=== PATIENT | female | born 1970 | race Caucasian/White ===

== ENCOUNTER → 2021-01-15 13:06 | Outpatient (BNVA) | payer MEDICARE, SELFPAY | PROVIDERS: PCP Physician Assistant Medical; Visit Provider Nurse Practitioner | DX: Z13.89 Encounter for screening for other disorder (principal) | CPT/HCPCS: 99212 ==

== ENCOUNTER → 2021-06-15 13:39 | Outpatient (BNVA) | payer MEDICARE, SELFPAY | PROVIDERS: PCP Physician Assistant Medical; Visit Provider Nurse Practitioner | DX: Z12.11 Encounter for screening for malignant neoplasm of colon (principal); K21.9 Gastro-esophageal reflux disease without esophagitis; E66.01 Morbid (severe) obesity due to excess calories; E73.9 Lactose intolerance, unspecified; R19.7 Diarrhea, unspecified | CPT/HCPCS: Q3014 ==

== ENCOUNTER → 2022-01-21 08:05 | Outpatient (BNVA) | payer MEDICARE, SELFPAY | PROVIDERS: PCP Physician Assistant Medical; Visit Provider Nurse Practitioner | DX: Z12.11 Encounter for screening for malignant neoplasm of colon (principal); K21.9 Gastro-esophageal reflux disease without esophagitis; E73.9 Lactose intolerance, unspecified; R19.7 Diarrhea, unspecified; E66.01 Morbid (severe) obesity due to excess calories; Z68.42 Body mass index [BMI] 45.0-49.9, adult | CPT/HCPCS: 99212 ==

== ENCOUNTER 2022-07-20 09:16 | Day surgery (SDC) | payer MEDICARE, SELFPAY ==
[2022-07-20 09:26] VITALS: BMI 45.8
[2022-07-20 09:34] VITALS: BP 130/83; PULSE 73; RESP 16; TEMP 36.3; O2SAT 95
--- NOTE | 2022-07-20 09:49 | P.CONAN_ITS ---
[facility] Active Problems Active Problems: All Active Problems (Updated 07/15/22 @ 10:06 by Kerry Zacarias RN) GERD (gastroesophageal reflux disease) (Acute) Lactose intolerance (Acute) Diarrhea (Acute) Morbid obesity (Acute) Colon cancer screening (Acute) Past Medical History Medical History (Updated 07/15/22 @ 10:06 by Kerry Zacarias RN) Anemia Chronic back pain Depression GERD (gastroesophageal reflux disease) History of cardiac murmur History of kidney stones IBS (irritable bowel syndrome) Obesity Family History Family History Mother Cancer Maternal Grandfather Cancer Maternal Uncle Lung cancer Family history of problems with anesthesia: No Surgical History Surgical History (Updated 07/15/22 @ 10:06 by Kerry Zacarias RN) History of back surgery History of esophagogastroduodenoscopy (EGD) History of lithotripsy History of Problems with Anesthesia: No Social History Social History Alcohol intake: current Alcohol intake frequency: a few times a month Patient Tobacco Use Status: Former Tobacco user Use of substances other than those prescribed or required for medical reasons: No Are you DNR?: No Advance Directives: No Advance Directives Information Provided: Yes Meds Allergies Allergy/AdvReac Type Severity Reaction Status Date / Time lactose [LACTOSE] Allergy Intermediate GI UPSET Verified 01/21/22 08:11 amoxicillin [AMOXICILLIN] AdvReac Intermediate YEAST Verified 01/21/22 08:11 INFECTION Home Medications Medication Instructions Recorded Confirmed Last Taken Type azelastine 0.05 % eye drops 1 drp ophthalmic (eye) BID PRN as 01/15/21 07/15/22 Unknown History directed biotin 1,000 mcg chewable tablet 1,000 mcg PO DAILY 01/15/21 07/15/22 Unknown History bupropion HCl 150 mg 24 hr tablet, 150 mg PO DAILY 01/15/21 07/15/22 Unknown History extended release bupropion HCl 300 mg 24 hr tablet, 300 mg PO QAM 01/15/21 07/15/22 Unknown History extended release citalopram 20 mg tablet 20 mg PO DAILY 01/15/21 07/15/22 Unknown History diclofenac potassium 50 mg tablet 50 mg PO DAILY 01/15/21 07/15/22 Unknown History diphenhydramine HCl 25 mg capsule 25 mg PO BID 01/15/21 07/15/22 Unknown History (Benadryl) fluticasone propionate 50 2 spray intranasal DAILY 01/15/21 07/15/22 Unknown His tory mcg/actuation nasal spray,suspension montelukast 10 mg tablet 10 mg PO DAILY 01/15/21 07/15/22 Unknown History naproxen 500 mg tablet 500 mg PO BID 01/15/21 07/15/22 Unknown History norethindrone 1 mg-ethinyl 1 tab PO DAILY 01/15/21 07/15/22 Unknown History estradiol 20 mcg (21)-iron 75 mg (7) tablet escitalopram oxalate 10 mg tablet 10 mg PO DAILY 06/15/21 07/15/22 Unknown History multivitamin 1 tab PO DAILY 06/15/21 07/15/22 Unknown History Exam Exam Date and Time: July 20, 2022 0949 Height,Weight and Vital Signs: Height 5 ft 9 in Weight 140.614 kg Last Vital Signs Temp 97.3 F 07/20/22 09:34 Pulse 73 07/20/22 09:34 Resp 16 07/20/22 09:34 BP 130/83 07/20/22 09:34 Pulse Ox 95 07/20/22 09:34 O2 Del Method 07/20/22 09:34 Airway Mallampati Class: II TM Dist: >3cm Neck ROM: Full Denture: Upper and Lower Heart: rrr Lungs: cta Assessment and Plan Assessment Anesthesia Assessment: Anesthesia Plan Discussed and Chart Reviewed Final Anesthetic Review Family History of Problems with Anesthesia: No History of Problems with Anesthesia: No NPO: Yes ASA Class: III Final Preanesthetic Review: No Changes in Pt Med Stat and Consent Obtained/Reviewed Patient Risk: Intermediate Procedure Risk: Intermediate Anesthetic Plan Anesthetic Plan: GA
--- NOTE | 2022-07-20 09:49 | P.HPSUR_ITS ---
Pre-Procedural Eval Section A Date of Service: 07/20/22 Section B Chief Complaint: screening Relevant Family History (Specify if Yes): No Relevant Social History: None Present Medications: see Short Stay Collaborative assessment Medical History: Significant History (History of back surgery History of esophagogastroduodenoscopy (EGD)) History of Previous Operations: Relevant previous surgery/procedure and date(s) (kidney stones, back surgery ) Allergies: Allergies Allergy/AdvReac Type Severity Reaction Status Date / Time lactose [LACTOSE] Allergy Intermediate GI UPSET Verified 01/21/22 08:11 amoxicillin [AMOXICILLIN] AdvReac Intermediate YEAST Verified 01/21/22 08:11 INFECTION Review of Systems Sugical H&P ROS: Negative: Constitution, Cardiovascular, Respiratory, Neurological, Psychiatric, Hem-Onc, Allergic/Immunologic, Gastrointestinal, Debbie tourinary, Musculoskeletal, Integumentary, Endocrine and Eyes/Ears/Nose/Throat Exam Surgical H&P Exam: Normal: HEENT, Normal: Heart, Normal: Lungs, Normal: Extremities, Normal: Abdomen, Normal: Skin and Normal: Neurological Plan Diagnosis/Plan: Unchanged I have reviewed the history and physical and performed a pertinent physical examination on my patient. No changes have occurred unless specified.
[2022-07-20] MEDS: Lactated Ringers 1,000 ML 50 ML IVCONT (09:52)
--- NOTE | 2022-07-20 09:59 | P.OP_ITS ---
Operative Note Operative Note Date of Service: 07/20/22 Narrative: Operative Information Procedure Description: Colonoscopy Indication: screening Anesthesia: MAC COLONOSCOPY Instrument: Olympus variable stiffness ADULT scope 190L Colonoscopy Monitoring: Vital signs and clinical assessment, continuous EKG monitoring, Pulse oximetry, Carbon Dioxide monitoring and blood pressure monitoring were done throughout the procedure. Colon withdrawal time was 12 minutes. Procedure: The patient was placed in the left lateral decubitis position and pre-procedure medications were administered. After a digital rectal examination of the ano-rectum, the video colonoscope was inserted into the rectum and advanced through the colon to the cecum/TI. The colonoscope was slowly withdrawn in a retrograde panoramic fashion and the colon mucosa was carefully examined including a retroflexed view of the rectum. Findings and interventions are described below. Procedure Difficulty: easy Findings: Terminal Ileum-normal Cecum:normal Ascending Colon: 12 mm flat polyp lifted with ORISE and then removed with cold snare Transverse Colon -normal Descending Colon:normal Sigmoid Colon: mild diverticulosis Rectum: Retroflexion with small internal hemorrhoids, grade I, 8-9 mm sessile p olyp removed with cold forceps Anorectum - normal Colon preparation: [place] Bowel Preparation Scale Right colon; 3 Transverse colon: 3 Left colon; 3 (0 = Unprepared colon segment with mucosa not seen due to solid stool that cannot be cleared. 1 = Portion of mucosa of the colon segment seen, but other areas of the colon segment not well seen due to staining, residual stool and/or opaque liquid. 2 = Minor amount of residual staining, small fragments of stool and/or opaque liquid, but mucosa of colon segment seen well. 3 = Entire mucosa of colon segment seen well with no residual staining, small fragments of stool or opaque liquid) Impression and Post Procedure Diagnosis: polyps internal hemorrhoids diverticular disease Plan: High fiber diet leaflet Avoid straining at stool, epsom salts and sitz bath, anusol supps or cream Repeat Colonoscopy in 5 years due to polyps today or earlier if clinically indicated Above findings were reviewed with the patient and relevant handouts were provided if indicated.
[2022-07-20 10:24] VITALS: BP 129/68; PULSE 72; RESP 14; TEMP 36.5; O2SAT 99
[2022-07-20 10:42] VITALS: BP 138/78; PULSE 75; RESP 18; TEMP 36.1; O2SAT 100
== END 2022-07-20 11:24 | disposition home or self-care (01) ==
PROVIDERS: Visit Provider Internal Medicine Gastroenterology
PROC: 0DJD8ZZ Inspection of Lower Intestinal Tract, Via Natural or Artificial Opening Endoscopic (ICD-10-PCS; CPT 45378; principal; 2022-07-20 10:10)
DX: Z12.11 Encounter for screening for malignant neoplasm of colon (principal); R19.7 Diarrhea, unspecified; D12.2 Benign neoplasm of ascending colon; D12.8 Benign neoplasm of rectum; K57.30 Diverticulosis of large intestine without perforation or abscess without bleeding; K64.0 First degree hemorrhoids; K21.9 Gastro-esophageal reflux disease without esophagitis; E73.9 Lactose intolerance, unspecified; E66.01 Morbid (severe) obesity due to excess calories; Z68.42 Body mass index [BMI] 45.0-49.9, adult; Z79.51 Long term (current) use of inhaled steroids; Z79.899 Other long term (current) drug therapy; Z88.1 Allergy status to other antibiotic agents; Z87.891 Personal history of nicotine dependence
CPT/HCPCS: 45385; 45380; 45381; 88305

== ENCOUNTER → 2023-02-09 08:06 | Outpatient (BNVA) | payer MEDICARE, SELFPAY | PROVIDERS: Visit Provider Nurse Practitioner | DX: D12.6 Benign neoplasm of colon, unspecified (principal); R19.7 Diarrhea, unspecified; E73.9 Lactose intolerance, unspecified | CPT/HCPCS: 99212 ==

== ENCOUNTER 2025-09-23 09:44 | Outpatient (AMB) | payer MEDICARE, MEDICAID, SELFPAY ==
--- NOTE | 2025-09-23 09:47 | MHC.OFFVIS ---
Vital Signs 09/23/25 09:50 Height 5 ft 9 in Weight 298 lb 13.259 oz BMI 44.1 BP 120/76 Blood Pressure Location Rt brachial Position Sitting Pulse 74 Pulse Source Pulse Oximeter Pulse Oximetry (%) 97 Oxygen Delivery Method Room Air Intake Visit Reasons: Thyroid nodule Intake Note: NEW Patient presents today to establish care for Thyroid Nodule: Continuous Improvement Black Belt Required: No Accompanied by: Self / Same As Patient Allergies lactose (LACTOSE) Allergy (Intermediate, Verified 09/23/25 09:51) GI UPSET amoxicillin (AMOXICILLIN) Adverse Reaction (Intermediate, Verified 09/23/25 09:51) YEAST INFECTION HPI Comments Details: History of Present Illness Thyroid Nodules: Approximately three weeks ago, the patient noticed a lump on their neck, confirmed by a coworker. After sending a picture to their doctor, they were prescribed antibiotics and scheduled for an ultrasound conducted one and a half to two weeks ago. The ultrasound revealed thyroid nodules, and the report suggested a biopsy. The patient reports that the lump is less noticeable when the head is positioned a certain way. Symptoms include fluctuating body temperature, occasional double vision, persistent tiredness despite adequate sleep, and minor difficulty swallowing with occasional tenderness since the lump appeared. The patient has a fear of choking and has modified their diet to softer foods. Obesity: The patient has maintained a stable weight despite dietary changes and exercise. Reports increased anxiety and tiredness. Has reduced sugar and junk food intake and increased water consumption. The patient has been actively modifying their diet over the past year, focusing on reducing sugar, soda, and junk food. They have increased their water intake and attempt to avoid sweets by not bringing them into the home. The patient begins their day with a Premier Protein shake and snacks on healthier options like granola and Ritz peanut butter crackers. They have expressed frustration with a soft food diet, preferring variety. For exercise, the patient walks at least 5,000 steps daily but has not resumed gym activities since the COVID-19 pandemic. They expressed interest in more structured exercises and are considering future medication options for weight management post-thyroid evaluation. Medications - Biotin - Previous use of Dicyclomine for stomach issues - Abilify (discontinued) Social History - Works as a skin care consultant - Engages in walking at least 5,000 steps daily Family History - Grandfather had colon cancer - No known family history of thyroid cancer or issues Review of Systems - Weight: Stable, no significant gain or loss - Eyes: Occasional double vision for the past few months - Gastrointestinal: Diarrhea with milk products due to lactose intolerance - Neurological: Persistent tiredness despite adequate sleep - Endocrine: No significant changes in weight despite dietary changes and exercise - Musculoskeletal: Chronic back pain - Psychological: Increased anxiety and tiredness - Respiratory: No snoring reported until a week ago Physical exam: General: Well appearing. Morbily obese Neck/Thyroid: Thyroid irregular, multiple nodules palpated, more prominent one in the isthmus, soft, feels fluid-filled Eyes: No conjunctival injection, not lid lag or proptosis CV: RRR, no murmur. No edema. Resp:Lungs clear to auscultation bilaterally Abdomen: Soft, nontender. nondistended Extremities/Neuro: No weakness or tremor of outstretched hands Labs Imaging: Thyroid US 09/12/25 FINDINGS: RIGHT THYROID LOBE: 5.9 x 1.8 x 2.8 cm, volume 15.8 cc. Normal homogeneous echotexture. Normal parenchymal vascularity. Nodule #1: Upper pole, 1.1 x 0.5 x 0.8 cm, predominantly solid, hypoechoic, not [id number], smooth margin, no echogenic foci. TI-RADS Category 4. Nodule #2: Mid-gland, 2.2 x 1.7 x 1.9 cm, predominantly solid, hypoechoic, not [id number], smooth margin, no echogenic foci. TI-RADS Category 4. Nodule #3: Lower pole, 1.7 x 1.0 x 1.3 cm, predominantly solid, mildly hypoechoic, not [id number], ill-defined margin, no echogenic foci. TI-RADS Category 4. Scattered additional subcentimeter nodules which do not meet TI-RADS criteria for imaging follow-up. LEFT THYROID LOBE: 5.9 x 2.1 x 2.8 cm, volume 17.9 cc. Normal homogeneous echotexture. Normal parenchymal vascularity. Nodule #1: Upper pole, 2.2 x 1.4 x 1.6 cm, predominantly solid, hypoechoic, not muyyeq-[id number], smooth margin, no echogenic foci. TI-RADS Category 4. Nodule #2: Lower pole, 1.7 x 1.3 x 1.5 cm, mixed cystic and solid, hypoechoic, not ipxqce-ypbr-ympi, smooth margin, no echogenic foci. TI-RADS Category 3. ISTHMUS: Thickness: 1.0 cm. Nodule #1: Mid isthmus, 2.6 x 2.2 x 2.2 cm, predominantly cystic, anechoic, not [id number]-tmqk-[id number], smooth margin, no echogenic foci. TI-RADS Category 1. IMPRESSION: Enlarged multinodular thyroid gland as detailed above. Tissue sampling is recommended for the TR 4 nodules measuring up to 2.2 cm in the right interpolar region, 1.7 cm in the right lower pole, and 2.2 cm in the left upper pole. Follow-up ultrasound is recommended in one year for the 1.1 cm right upper pole tear for nodule and the 1.7 cm right lower pole TR 3 nodule. [facility] Medical History History of kidney stones Anemia Chronic back pain Depression History of cardiac murmur IBS (irritable bowel syndrome) GERD (gastroesophageal reflux disease) Obesity Surgical History H/O colonoscopy History of lithotripsy History of back surgery History of esophagogastroduodenoscopy (EGD) Family History Mother Cancer Maternal Grandfather Cancer Maternal Uncle Lung cancer Social History Alcohol intake: current Alcohol intake frequency: a few times a month Patient Tobacco Use Status: Former Tobacco user Physical Exam Vital Signs: Last Vital Signs Pulse 74 09/23/25 09:50 BP 120/76 09/23/25 09:50 Pulse Ox 97 09/23/25 09:50 Oxygen Delivery Method Room Air 09/23/25 09:50 BMI result Body Mass Index 44.1 Assessment & Plan Assessment & Plan (1) Thyroid nodule: Code(s): E04.1 - Nontoxic single thyroid nodule Category: Medical Plan: The patient has thyroid nodules found incidentally that require further evaluation. Disucssed with the patient that the main concerns with thyroid nodules is hyperthyroidism and concerns about potential thyroid cancer. TFTs are necessary to rule out thyroid hormone overproduction before proceeding with a biopsy. We discussed that thyroid nodules are highly prevalent, affecting up to 60?65% of the general population, with most being benign. The risk of malignancy in thyroid nodules is relatively low, estimated at 4?6.5%. Most nodules are discovered incidentally due to the widespread use of imaging. Malignant potential is assessed using clinical risk factors, ultrasound features (such as microcalcifications, irregular margins, hypoechogenicity, and lcqdqp-dcjt-hccj shape), and, in indeterminate cases, molecular testing. The majority of thyroid cancers detected are small, indolent papillary carcinomas with excellent prognosis. Thyroid Nodules: - Discontinue biotin supplementation for five days prior to thyroid function blood test. - Conduct thyroid function tests to evaluate hormone levels. - Consider fine needle aspiration (FNA) biopsy based on blood test results. - Follow up in two weeks to discuss test results and next steps. (2) Morbid obesity: Code(s): E66.01 - Morbid (severe) obesity due to excess calories Category: Medical Plan: The patient has gained weight in the last 5-6 years, which has remained stable weight despite making lifestyle changes. Consideration for appetite-suppressing medication will be pending the results of the thyroid evaluation. She denies history of trauma or head surgery. - Referral for a sleep study due to potential sleep disturbances. - Consider future use of medication to assist with weight management based on thyroid results. - Referral to naval marine engineer for help with weight loss/nutrition education - Adviced to increase physical activity to 170 mins per week, including strenghtening exercises Plan 60 minutes spent reviewing previous records, labs, imaging, education and documenting in the chart Orders: Orders TSH reflex Free T4 Today E04.1 - Nontoxic single thyroid nodule US biopsy thyroid Today E04.1 - Nontoxic single thyroid nodule Referrals Nutrition/Dietitian Referral E66.01 - Morbid (severe) obesity due to excess calories Sleep Medicine Referral E66.01 - Morbid (severe) obesity due to excess calories Coding Level of Care Code New Pt Level 5 (64040) Diagnoses Thyroid nodule E04.1 Morbid obesity E66.01
[2025-09-23 09:50] VITALS: BP 120/76; PULSE 74; O2SAT 97; BMI 44.1
== END 2025-09-23 10:58 | disposition home or self-care (01) ==
PROVIDERS: PCP Physician Assistant Medical; Visit Provider Student in an Organized Health Care Education/Training Program
DX: E04.1 Nontoxic single thyroid nodule (principal); E66.01 Morbid (severe) obesity due to excess calories; Z68.41 Body mass index [BMI] 40.0-44.9, adult
CPT/HCPCS: 99205

== ENCOUNTER → 2025-09-23 09:44 | Outpatient (BNVA) | payer MEDICARE, SELFPAY | PROVIDERS: PCP Physician Assistant Medical; Visit Provider Student in an Organized Health Care Education/Training Program | DX: E04.1 Nontoxic single thyroid nodule (principal); E66.01 Morbid (severe) obesity due to excess calories | CPT/HCPCS: 99202 ==

== ENCOUNTER 2025-09-29 08:24 | Outpatient (REF) | payer MEDICARE, MEDICAID, SELFPAY ==
--- OUTSIDE RECORDS SUMMARY | 2025-09-29 08:31 | XMS_ITS | Encounter Summary ---
Author Organization [facility] Address [address] [place] [address] Phone Care Team Providers Care Welder Gun Name Role Phone Goran Hernandez MD Primary Care Provider [phone] Encounter Details Date Type Department Care Team (Late st Contact Info) Description 12/14/2023 Documentation Only [facility] [address] [place] [address] Carlos [place] [address] [place] [phone] Social History Tobacco Use Types Packs/Day Years Used Date Smoking Tobacco: Never Assessed Comments Unknown Sex and Gender Information Value Date Recorded Sex Assigned at Not on file Legal Sex Female 10:50 AM EST Gender Identity Not on file Sexual Orientation Not on file documented as of this encounter Plan of Treatment Upcoming Encounters Date Type Department Care Team (Late st Contact Info) Description 08/05/2026 1:30 PM EDT Office Visit [facility] [address] [place] [address] Kevin Kline MD [address] [place] [address] documented as of this encounter Visit Diagnoses Not on filedocumented in this encounter Care Teams Welder Gun Relationship Specialty Start Date End Date Goran Hernandez MD [address] [place] [phone] PCP - General Internal Medicine 03/21/24 documented as of this encounter
--- OUTSIDE RECORDS SUMMARY | 2025-09-29 08:31 | XMS_ITS | Clinical Summary ---
Author Organization [facility] Address [address] [place] [address] Care Team Providers Care Director Of Critical Care Name Role Phone Unavailable Primary Care Provider Unavailabl e Social History Tobacco Use Types Packs/Day Years Used Date Smoking Tobacco: Never Assessed Comments Unknown Sex and Gender Information Value Date Recorded Sex Assigned at Not on file Legal Sex Female 7:03 PM EST Gender Identity Not on file Sexual Orientation Not on file Plan of Treatment Health Maintenance Due Date Last Done Comments Hepatitis C Virus Screening 1970 HIV Screening 1983 DTaP/Tdap/Td Vaccines (1 - Tdap) 1989 Hepatitis B Vaccines (1 of 3 - 19+ 3-dose series) 02/1989 Pneumococcal Vaccines 50+ (1 of 1 - PCV) 02/08/2020 Zoster (Shingles) Vaccine (1 of 2) 02/08/2020 COVID-19 Vaccine (1 - season) 2025 RSV Vaccine 50 years and old er and Patients (1 - 1-dose 75+ series) 2045
--- OUTSIDE RECORDS SUMMARY | 2025-09-29 08:31 | XMS_ITS | Clinical Summary ---
Author Organization [facility] Address [address] [place] [address] Phone Care Team Providers Care Swamper Name Role Phone Goran Hernandez MD Primary Care Provider [phone] Medications buPROPion XL (WELLBUTRIN XL) 300 MG 24 hr tablet Take 300 mg by mouth 1 (one) time each day 02/16/2024 Active citalopram (CeleXA) 20 MG tablet Take 20 mg by mouth 1 (one) time each day in the evening 02/19/2024 Active famotidine (PEPCID) 20 MG tablet Take 20 mg by mouth at night if needed 02/10/2024 Active montelukast (SINGULAIR) 10 MG tablet Take 10 mg by mouth 1 (one) time each day 02/16/2024 Active pantoprazole (PROTONIX) 40 MG EC tablet Take 40 mg by mouth in the morning and 40 mg in the evening. 02/16/2024 Active Active Problems Problem Noted Date Diagnosed Date Chronic kidney disease 04/19/2024 Nephrolithiasis 04/19/2024 Encounters Date Type Department Care Team Description 07/30/2025 3:45 PM EDT Office Visit [facility], [address] [place] [address] Kevin Kline MD Chronic kidney disease, stage 2 (mild) (Primary Dx); Morbid obesity (HCC) from Last 3 Months Family History Medical History Relation Comments Cancer Father Cancer Mother Relation Status Comments Father Mother Social History Tobacco Use Types Packs/Day Years Used Date Smoking Tobacco: Never Assessed Comments Unknown Sex and Gender Information Value Date Recorded Sex Assigned at Not on file Legal Sex Female 10:50 AM EST Gender Identity Not on file Sexual Orientation Not on file Last Filed Vital Signs Vital Sign Reading Time Taken Comments Blood Pressure 119/84 10/09/2024 3:11 PM EST Pulse - - Temperature - - Respiratory Rate - - Oxygen Saturation - - Inhaled Oxygen Concentration - - Weight 136 kg (299 lb 12.8 oz) 07/30/2025 5:57 P M EDT Height - - Body Mass Index - - Plan of Treatment Upcoming Encounters Date Type Department Care Team (Late st Contact Info) Description 08/05/2026 1:30 PM EDT Office Visit [facility] [place], [address] [place] [address] Kevin Kline MD [address] [place] [phone] Health Maintenance Due Date Last Done Comments Breast Cancer Screening 1970 Hepatitis B Vaccine (1 of 3 - 19+ 3-dose series) 02/07 Pneumococcal Vaccine: 50+ Years (1 of 2 - PCV) 989 Colorectal Cancer Screening: Annual FOBT 2019 Colorectal Cancer Screening: Colonoscopy 2019 Colorectal Cancer Screening: Sigmoidoscopy 2019 Influenza Vaccine (#1) 2025 Procedures Procedure Name Priority Date/Time Associated Diagnosis Comments URINE ALBUMIN / CREATININE RATIO Routine 07/08/2025 8:37 AM EDT Stage 3 chronic kidney disease, not otherwise specified (HCC) Hydronephrosis with ureteropelvic junction obstruction Albuminuria, not otherwise specified RENAL FUNCTION PANEL Routine 07/08/2025 8:37 AM EDT Stage 3 chronic kidney disease, not otherwise specified (HCC) Hydronephrosis with ureteropelvic junction obstruction Albuminuria, not otherwise specified CBC AND DIFFERENTIAL Routine 07/08/2025 8:37 AM EDT Stage 3 chronic kidney disease, not otherwise specified (HCC) Hydronephrosis with ureteropelvic junction obstruction Albuminuria, not otherwise specified from Last 3 Months Results * Urine Albumin / Creatinine Ratio (07/08/2025 8:37 AM EDT) Creatinine, Ur 96.7 Not Estab. mg/dL [facility] Albumin, Urine 17.9 Not Estab. ug/mL [facility] Albumin/Creatin ine Ratio 19 0 - 29 mg/g creat [facility] Comment: Normal: 0 - 29 Moderately increased: 30 - 300 Severely increased: >300 Urine Urine specimen obtained by clean catch procedure / Unknown 07/08/2025 8:37 AM EDT 07/08/2025 Nacho Forrester MD LAB URINE ORDERABLES Final Result [facility] [address] [place] [address] * CBC and Differential (07/08/2025 8:37 AM EDT) WBC 7.4 3.4 - 10.8 x10E3/uL [facility] RBC 4.18 3.77 - 5.28 x10E6/uL [facility] Hemoglobin 13.3 11.1 - 15.9 g/dL [facility] Hematocrit 40.1 34.0 - 46.6 % [facility] MCV 96 79 - 97 fL [facility] MCH 31.8 26.6 - 33.0 pg [facility] MCHC 33.2 31.5 - 35.7 g/dL [facility] RDW 12.6 11.7 - 15.4 % [facility] Platelets 235 150 - 450 x10E3/uL [facility] Neutrophils Relative 54 Not Estab. % [facility] Lymphocytes Relative 38 Not Estab. % [facility] Monocytes 6 Not Estab. % [facility] Eosinophils Relative 2 Not Estab. % [facility] Basophils Relative 0 Not Estab. % [facility] Neutrophils Absolute 4.0 1.4 - 7.0 x10E3/uL [facility] Lymphocytes Absolute 2.8 0.7 - 3.1 x10E3/uL [facility] Monocytes Absolute 0.5 0.1 - 0.9 x10E3/uL [facility] Eosinophils Absolute 0.2 0.0 - 0.4 x10E3/uL [facility] Basophils Absolute 0.0 0.0 - 0.2 x10E3/uL [facility] Immature Granulocytes 0 Not Estab. % [facility] Immature Grans (Absolute) 0.0 0.0 - 0.1 x10E3/uL [facility] Blood Venous blood / Unknown 07/08/2025 8:37 AM EDT 07/08/2025 us Nacho Forrester MD LAB BLOOD ORDERABLES Final Result [facility] [address] [place] [address] * (ABNORMAL) Renal Function Panel (07/08/2025 8:37 AM EDT) Glucose 129(H) 70 - 99 mg/dL [facility] BUN 19 6 - 24 mg/dL [facility] Creatinine 1.10(H) 0.57 - 1.00 mg/dL [facility] eGFR CKD-EPI CR 2020 59(L) >59 mL/min/1.7 3 [facility] BUN/Creatinine Ratio 17 9 - 23 [facility] Sodium 139 134 - 144 mmol/L [facility] Potassium 4.4 3.5 - 5.2 mmol/L [facility] Chloride 104 96 - 106 mmol/L [facility] Bicarbonate (CO2) 18(L) 20 - 29 mmol/L [facility] Calcium 9.5 8.7 - 10.2 mg/dL [facility] Phosphorus 3.7 3.0 - 4.3 mg/dL [facility] Albumin 4.1 3.8 - 4.9 g/dL [facility] Blood Venous blood / Unknown 07/08/2025 8:37 AM EDT 07/08/2025 Nacho Forrester MD LAB BLOOD ORDERABLES Final [facility] [address] [place] [address] from Last 3 Months Insurance [employer] Member Subscriber Plan / Payer (Ef fective 2023-Present) Name:Jenny Cruz Relation to Subscriber:Self Name:Jenny Cruz Payer ID:[id number] (NAIC) Group ID:[id number] Type:Medicare Address: [facility] [address] [id number] Medicaid [place] Care Teams Swamper Relationship Specialty Start Date End Date Goran Hernandez MD [address] [place] [address] PCP - General Internal Medicine 03/21/24
--- OUTSIDE RECORDS SUMMARY | 2025-09-29 08:31 | XMS_ITS | Encounter Summary ---
Author Organization [facility] Address [address] [place] [address] Phone Care Team Providers Care Instructor Psychiatric Aide Name Role Phone Goran Hernandez MD Primary Care Provider Encounter Details Date Type Department Care Team (Late st Contact Info) Description 12/14/2023 Documentation Only [facility] [address] [place] [address] Carlos [place] [address] [place] [phone] Social History Tobacco Use Types Packs/Day Years [...] Visit [facility] [address] [place] [address] Kevin Kline MD [address] [place] [address] documented as of this encounter Visit Diagnoses Not on filedocumented in this encounter Care Teams Instructor Psychiatric Aide Relationship Specialty Start Date End Date Goran Hernandez MD [address] [place] [phone] PCP - General Internal Medicine 03/21/24 documented as of this encounter
--- OUTSIDE RECORDS SUMMARY | 2025-09-29 08:31 | XMS_ITS | Encounter Summary ---
Author Organization [facility] Address [address] [place] [address] Care Team Providers Care Research Physiologist Name Role Phone Unavailable Primary Care Provider Unavailabl e Encounter Details Date Type Department Care Team (Late st Contact Info) Description 08/17/2023 Scanned Document [address] [phone] Tobi Urban MD [address] [place] [phone] Social History Tobacco Use Types Packs/Day Years Used Date Smoking Tobacco: Never Assessed Comments Unknown Sex and Gender Information Value Date Recorded Sex Assigned at Not on file Legal Sex Female 7:03 PM EST Gender Identity Not on file Sexual Orientation Not on file documented as of this encounter Plan of Treatment Not on file documented as of this encounter Visit Diagnoses Not on filedocumented in this encounter
== END 2025-09-29 08:25 | disposition home or self-care (01) ==
LOC: HO.LAB 08:24
PROVIDERS: Student in an Organized Health Care Education/Training Program; PCP Internal Medicine; Visit Provider Psychiatry & Neurology Clinical Neurophysiology
DX: E04.1 Nontoxic single thyroid nodule (principal)
CPT/HCPCS: 36415; 84443

== ENCOUNTER 2025-10-08 07:45 | Outpatient (REF) | payer MEDICARE, MEDICAID, SELFPAY ==
--- OUTSIDE RECORDS SUMMARY | 2025-10-08 07:49 | XMS_ITS | Encounter Summary ---
Author Organization [facility] Address [address] [place] [address] Care Team Providers Care Service Station Helper Name Role Phone Unavailable Primary Care Provider Unavailabl e Encounter Details Date Type Department Care Team (Late st Contact Info) Description 08/17/2023 Scanned Document [address] [phone] Tobi Urban MD [address] [place] [address] [phone] Social History Tobacco Use Types Packs/Day Years [...]
--- OUTSIDE RECORDS SUMMARY | 2025-10-08 07:49 | XMS_ITS | Clinical Summary ---
Author Organization [facility] Address [address] [place] [address] Phone Care Team Providers Care Tour Counselor Name Role Phone Goran Hernandez MD Primary Care Provider [phone] Medications buPROPion XL (WELLBUTRIN XL) 300 MG [...] Office Visit [facility], [address] [place] [address] Kevin Kline MD Chronic kidney [...] Visit [facility] [place], [address] [place] [address] Kevin Kline MD [address] [phone] Health Maintenance Due Date Last Done Comments Breast Cancer Screening 1970 Hepatitis B Vaccine (1 of 3 - 19+ 3-dose series) 02/07 Pneumococcal Vaccine: 50+ Years (1 of 2 - PCV) 989 Colorectal Cancer Screening: Annual FOBT 2019 Colorectal Cancer Screening: Colonoscopy 2019 Colorectal Cancer Screening: Sigmoidoscopy 2019 Influenza Vaccine (#1) 2025 Insurance [employer] Medicaid [place] Care Teams Tour Counselor Relationship Specialty Start Date End Date Goran Hernandez MD [address] [phone] PCP - General Internal Medicine 03/21/24
--- OUTSIDE RECORDS SUMMARY | 2025-10-08 07:49 | XMS_ITS | Encounter Summary ---
Author Organization [facility] Address [address] [place] [address] Phone Care Team Providers Care Equipment Worker Name Role Phone Goran Hernandez MD Primary Care Provider [phone] Encounter Details Date Type Department Care Team (Late st Contact Info) Description 12/14/2023 Documentation Only [facility] [address] [place] [address] Carlos Sandy [place] [address] [place] [phone] Social History Tobacco Use Types Packs/Day Years [...] Visit [facility] [address] [place] [address] Kevin Kline MD [address] [place] [address] documented as of this encounter Visit Diagnoses Not on filedocumented in this encounter Care Teams Equipment Worker Relationship Specialty Start Date End Date Goran Hernandez MD [address] [place] [phone] PCP - General Internal Medicine 03/21/24 documented as of this encounter
--- OUTSIDE RECORDS SUMMARY | 2025-10-08 07:49 | XMS_ITS | Encounter Summary ---
Author Organization [facility] Address [address] [place] [address] Phone Care Team Providers Care Cook Fry Name Role Phone Goran Hernandez MD Primary Care Provider [phone] Encounter Details Date Type Department Care Team (Late st Contact Info) Description 12/14/2023 Documentation Only [facility] [address] [place] [address] Carlos [place] [address] [place] [phone] Social History Tobacco Use Types Packs/Day Years [...] Visit [facility] [address] [place] [address] Kevin Kline MD [address] [place] [address] documented as of this encounter Visit Diagnoses Not on filedocumented in this encounter Care Teams Cook Fry Relationship Specialty Start Date End Date Goran Hernandez MD [address] [place] [phone] PCP - General Internal Medicine 03/21/24 documented as of this encounter
--- OUTSIDE RECORDS SUMMARY | 2025-10-08 07:49 | XMS_ITS | Clinical Summary ---
Author Organization [facility] Address [address] [place] [address] Care Team Providers Care Building Pressure Washer Name Role Phone Unavailable Primary Care Provider [...]
--- NOTE | 2025-10-08 09:29 | PM.PROC ---
Brief Operative Note Date of procedure: 10/08/25 Pre-op diagnosis: Right mid pole 2.2 x 1.7 x 1.9 cm and left upper pole, 2.2 x 1.4 x 1.6 cm Post-op diagnosis: same Procedure: INDICATION: Right mid pole 2.2 x 1.7 x 1.9 cm and left upper pole, 2.2 x 1.4 x 1.6 cm thyroid nodules; FNA performed to assess for malignancy DESCRIPTION OF PROCEDURE: The indications for FNA (to assess for malignancy) were reviewed with the patient in detail. Potential complications (e.g., bleeding, infection, damage to local structures, absence of clear diagnosis after FNA) were reviewed. Alternatives to FNA including conservative observation or surgery were described. The patient understood and agreed to proceed. This was documented by the signing of the written informed consent form. A time-out was performed to confirm the patient's identity and the site of planned FNA. The nodule of interest was identified using ultrasound (14 MHz linear array probe). The site of FNA was then draped in the usual fashion and carefully cleaned and prepared using alcohol swabs. The skin at the previously-identified site of needle insertion was iced and sprayed with numbing spray. Under ultrasound guidance, 4 passes were performed using a 1.5-inch, 22-gauge needle, and sample was obtained via capillary action for each thyroid nodule. The needle tip was clearly visualized to be within the nodule at the time of sampling for 4 of 4 passes in each nodule. The patient tolerated the procedure well. There were no immediate complications. A small adhesive bandage was applied, and the patient was advised to take acetaminophen (rather than NSAIDs) for any discomfort and to report any signs of inflammation/infection or marked swelling. IMPRESSION: Technically successful ultrasound-guided fine needle aspiration of 2.2 x 1.7 x 1.9 cm and left upper pole, 2.2 x 1.4 x 1.6 cm thyroid nodules. PLAN: The patient was advised that I will provide follow-up regarding the cytology result and any subsequent plans. Sandra Hodge MD Endocrinology Attending Anesthesia: local Surgeon: Sandra Hodge Disposition: same day
== END 2025-10-08 07:46 | disposition home or self-care (01) ==
LOC: HO.US 07:45
PROVIDERS: PCP Internal Medicine; Visit Provider Student in an Organized Health Care Education/Training Program
DX: E04.1 Nontoxic single thyroid nodule (principal)
CPT/HCPCS: 10005; 88173

== ENCOUNTER → 2025-10-08 07:45 | Outpatient (BNV) | payer MEDICARE, MEDICAID, SELFPAY | PROVIDERS: PCP Internal Medicine; Visit Provider Student in an Organized Health Care Education/Training Program | DX: E04.2 Nontoxic multinodular goiter (principal) | CPT/HCPCS: 10005; 10006 ==

== ENCOUNTER 2025-10-22 12:42 | Outpatient (AMB) | payer MEDICARE, MEDICAID, SELFPAY ==
--- NOTE | 2025-10-22 12:49 | A.OFFVIS_ITS ---
Vital Signs 3 10/22/25 12:50 Height 5 ft 9 in Weight 298 lb 13.259 oz BMI 44.1 BP 118/68 Blood Pressure Location Rt brachial Position Sitting Pulse 86 Pulse Source Pulse Oximeter Pulse Oximetry (%) 98 Oxygen Delivery Method Room Air Intake Visit Reasons: Biopsy f/u Intake Note: Patient presents here today for FNA Thyroid Biopsy results: * FNA Thyroid Biopsy: Completed on 10/08/2025 Network Security Architect Required: No Accompanied by: Self / Same As Patient Allergies lactose (LACTOSE) Allergy (Intermediate, Verified 09/23/25 09:51) GI UPSET amoxicillin (AMOXICILLIN) Adverse Reaction (Intermediate, Verified 09/23/25 09:51) YEAST INFECTION HPI Comments Details: History of Present Illness Thyroid Nodules: Approximately three weeks ago, the patient noticed a lump on their neck, confirmed by a coworker. After sending a picture to their doctor, they were prescribed antibiotics and scheduled for an ultrasound conducted one and a half to two weeks ago. The ultrasound revealed thyroid nodules, and the report suggested a biopsy. The patient reports that the lump is less noticeable when the head is positioned a certain way. Symptoms include fluctuating body temperature, occasional double vision, persistent tiredness despite adequate sleep, and minor difficulty swallowing with occasional tenderness since the lump appeared. The patient has a fear of choking and has modified their diet to softer foods. Obesity: The patient has maintained a stable weight despite dietary changes and exercise. Reports increased anxiety and tiredness. Has reduced sugar and junk food intake and increased water consumption. The patient has been actively modifying their diet over the past year, focusing on reducing sugar, soda, and junk food. They have increased their water intake and attempt to avoid sweets by not bringing them into the home. The patient begins their day with a Premier Protein shake and snacks on healthier options like granola and Ritz peanut butter crackers. They have expressed frustration with a soft food diet, preferring variety. For exercise, the patient walks at least 5,000 steps daily but has not resumed gym activities since the COVID-19 pandemic. They expressed interest in more structured exercises and are considering future medication options for weight management post-thyroid evaluation. 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 - Engages in walking at least 5,000 steps daily Family History - Grandfather had colon cancer - No known family history of thyroid cancer or issues Review of Systems - Weight: Stable, no significant gain or loss - Eyes: Occasional double vision for the past few months - Gastrointestinal: Diarrhea with milk products due to lactose intolerance - Neurological: Persistent tiredness despite adequate sleep - Endocrine: No significant changes in weight despite dietary changes and exercise - Musculoskeletal: Chronic back pain - Psychological: Increased anxiety and tiredness - Respiratory: No snoring reported until a week ago Interval history: Patient underwent FNA on 10/08/25 She did not have any complications from the FNA Physical exam: General: Well appearing. Morbily obese Neck/Thyroid: Thyroid irregular, multiple nodules palpated, more prominent one in the isthmus, soft, feels fluid-filled Eyes: No conjunctival injection, not lid lag or proptosis CV: RRR, no murmur. No edema. Resp:Lungs clear to auscultation bilaterally Abdomen: Soft, nontender. nondistended Extremities/Neuro: No weakness or tremor of outstretched hands Labs Imaging: FNA 10/08/25 Thyroid US 09/12/25 FINDINGS: RIGHT THYROID LOBE: 5.9 x 1.8 x 2.8 cm, volume 15.8 cc. Normal homogeneous echotexture. Normal parenchymal vascularity. Nodule #1: Upper pole, 1.1 x 0.5 x 0.8 cm, predominantly solid, hypoechoic, not [id number], smooth margin, no echogenic foci. TI-RADS Category 4. Nodule #2: Mid-gland, 2.2 x 1.7 x 1.9 cm, predominantly solid, hypoechoic, not yztxmo-[id number], smooth margin, no echogenic foci. TI-RADS Category 4. Nodule #3: Lower pole, 1.7 x 1.0 x 1.3 cm, predominantly solid, mildly hypoechoic, not alhnur-kgiy-[id number], ill-defined margin, no echogenic foci. TI-RADS Category 4. Scattered additional subcentimeter nodules which do not meet TI-RADS criteria for imaging follow-up. LEFT THYROID LOBE: 5.9 x 2.1 x 2.8 cm, volume 17.9 cc. Normal homogeneous echotexture. Normal parenchymal vascularity. Nodule #1: Upper pole, 2.2 x 1.4 x 1.6 cm, predominantly solid, hypoechoic, not uwomnq-kwna-nxyh, smooth margin, no echogenic foci. TI-RADS Category 4. Nodule #2: Lower pole, 1.7 x 1.3 x 1.5 cm, mixed cystic and solid, hypoechoic, not vjcolt-ivje-fcjm, smooth margin, no echogenic foci. TI-RADS Category 3. ISTHMUS: Thickness: 1.0 cm. Nodule #1: Mid isthmus, 2.6 x 2.2 x 2.2 cm, predominantly cystic, anechoic, not bqvknz-eghx-fyws, smooth margin, no echogenic foci. TI-RADS Category 1. IMPRESSION: Enlarged multinodular thyroid gland as detailed above. Tissue sampling is recommended for the TR 4 nodules measuring up to 2.2 cm in the right interpolar region, 1.7 cm in the right lower pole, and 2.2 cm in the left upper pole. Follow-up ultrasound is recommended in one year for the 1.1 cm right upper pole tear for nodule and the 1.7 cm right lower pole TR 3 nodule. [facility] Medical History (Updated 09/23/25 @ 10:22 by Sandra Hodge MD) History of kidney stones Anemia Chronic back pain Depression History of cardiac murmur IBS (irritable bowel syndrome) GERD (gastroesophageal reflux disease) Obesity Surgical History (Updated 10/22/25 @ 12:56 by KAYLA Bauman) History of fine needle aspiration with imaging guidance H/O colonoscopy History of lithotripsy History of back surgery History of esophagogastroduodenoscopy (EGD) Family History Mother Cancer Maternal Grandfather Cancer Maternal Uncle Lung cancer Social History Alcohol intake: current Alcohol intake frequency: a few times a month Patient Tobacco Use Status: Former Tobacco user Physical Exam Vital Signs: Oxygen Delivery Method Room Air 10/22/25 12:50 BMI result Body Mass Index 44.1 Assessment & Plan Assessment & Plan (1) Thyroid nodule: Code(s): E04.1 - Nontoxic single thyroid nodule Category: Medical Plan: The patient has thyroid nodules found incidentally that require further evaluation. Disucssed with the patient that the main concerns with thyroid nodules is hyperthyroidism and concerns about potential thyroid cancer. TFTs are necessary to rule out thyroid hormone overproduction before proceeding with a biopsy. Results of the FNA showed that her right midpole thyroid nodule was [place] category 2, we discussed that this indicates that is a benign nodule, but we advise to monitor yearly to assess for changes in size or volume. In regards to her left upper pole nodule, was resulted nondiagnostic, which is expected as it was a mostly cystic nodule. I do think that overall the risk of malignancy with this nodule is lower, but I would advise to continue to monitor yearly with ultrasound also. Plan Repeat ultrasound of thyroid nodules biopsied in 1 year She has pending FNA of other 2 thyroid nodules that would be performed on 11/05/2025 (2) Morbid obesity: Code(s): E66.01 - Morbid (severe) obesity due to excess calories Category: Medical Plan: The patient has gained weight in the last 5-6 years, which has remained stable weight despite making lifestyle changes. Consideration for appetite-suppressing medication will be pending the results of the thyroid evaluation. She denies history of trauma or head surgery. - Referral for a sleep study due to potential sleep disturbances. - Consider future use of medication to assist with weight management based on thyroid results. - Referral to food or baggage handling rampman for help with weight loss/nutrition education - Adviced to increase physical activity to 170 mins per week, including strenghtening exercises Plan 60 minutes spent reviewing previous records, labs, imaging, education and documenting in the chart Orders: Orders 2 US biopsy thyroid Today E04.1 - Nontoxic single thyroid nodule Coding Level of Care Code Est Pt Level 4 (17169) Add On Problem Visit Only Diagnoses Thyroid nodule E04.1 Morbid obesity E66.01
[2025-10-22 12:50] VITALS: BP 118/68; PULSE 86; O2SAT 98; BMI 44.1
== END 2025-10-22 14:13 | disposition home or self-care (01) ==
LOC: HO.ENCR 12:43
PROVIDERS: PCP Physician Assistant Medical; Visit Provider Student in an Organized Health Care Education/Training Program
DX: E04.1 Nontoxic single thyroid nodule (principal); E66.01 Morbid (severe) obesity due to excess calories
CPT/HCPCS: 99214; G2211

== ENCOUNTER → 2025-10-22 12:42 | Outpatient (BNVA) | payer MEDICARE, MEDICAID, SELFPAY | PROVIDERS: PCP Physician Assistant Medical; Visit Provider Student in an Organized Health Care Education/Training Program | DX: E04.1 Nontoxic single thyroid nodule (principal); E66.01 Morbid (severe) obesity due to excess calories; Z68.41 Body mass index [BMI] 40.0-44.9, adult | CPT/HCPCS: 99212 ==

== ENCOUNTER 2025-11-04 09:06 | Outpatient (AMB) | payer MEDICARE, MEDICAID, SELFPAY ==
--- NOTE | 2025-11-04 09:29 | MHC.OFFVIS ---
Vital Signs 11/04/25 09:30 Height 5 ft 9 in Weight 299 lb 6 oz BMI 44.2 BP 118/82 Blood Pressure Location Rt brachial Position Sitting Pulse 73 Pulse Source Pulse Oximeter Pulse Oximetry (%) 98 Oxygen Delivery Method Room Air Intake Visit Reasons: Sleep Apnea Intake Note: Patient presents EXCEPTIONAL STUDENT EDUCATION AIDE Sleep Apnea. No hard time falling asleep, hard time staying asleep. Lives alone no witnessed snoring/apnea/gasping. Goes to bed at 10-10:30pm wakes up at 7am. Wakes up 1-2times a night. Occasional naps 1-2hrs. RLS. No headaches. No history of sleep studies. Accompanied by: Self / Same As Patient Allergies lactose (LACTOSE) Allergy (Intermediate, Verified 11/04/25 09:33) GI UPSET amoxicillin (AMOXICILLIN) Adverse Reaction (Intermediate, Verified 11/04/25 09:33) YEAST INFECTION HPI Comments Details: 55 year old female presents for an evaluation of sleep difficulties. Interim Med Hx: Aug 2025, Thyroid nodule x2 bilaterally, pending biopsy. r side is benign, left side aspirated. CKD stage III, managed. In 2004, Lumbar surgical procedure for ruptured disc at L4/L5, r. hip arthritis, She usually goes to bed at 10:30pm, wakes up at 7:30am. For the last 2 months she started to have difficulty staying asleep. She has one to zero bathroom breaks. She is not certain about snoring. Denies bruxism, morning headaches, and parasomnias. She has allergies and manages the flare ups with claritin, zyrtec, benadryl and montelukast. She has RLS for years now, r. side is worse with radiating numbness, tingling, she has to move her foot, will get up and walk around her apt for a few minutes. She started taking magnesium 200mg po qpm daily. Denies cramps and spasm. Mood is low, she is off schedule due to being off from work. She usually has depression and worse during the holidays. She manages with lexapro 30mg and wellbutrin 300mg PO qam. 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 She walks 5000 steps daily and avoids sugar, as she is learning to make better dietary choices. She has GERD and takes pantoprazole with famotidine daily, remembers to sit upright for 30 min and avoids acidic foods. She forgets to hydrate. Denies alcohol and smoking, mj, edibles, vaping. Denies FH of seizures, strokes, bells palsey and dementia. Mom passed due to + Non Hodgkins Lymphoma. Dad unknown. [facility], [facility] Medical History History of kidney stones Anemia Chronic back pain Depression History of cardiac murmur IBS (irritable bowel syndrome) GERD (gastroesophageal reflux disease) Obesity Surgical History History of fine needle aspiration with imaging guidance H/O colonoscopy History of lithotripsy History of back surgery History of esophagogastroduodenoscopy (EGD) Family History Mother Cancer Maternal Grandfather Cancer Maternal Uncle Lung cancer Social History Alcohol intake: current Alcohol intake frequency: a few times a month Patient Tobacco Use Status: Former Tobacco user Physical Exam Vital Signs: Last Vital Signs Pulse 73 11/04/25 09:30 BP 118/82 11/04/25 09:30 Pulse Ox 98 11/04/25 09:30 Oxygen Delivery Method Room Air 11/04/25 09:30 BMI result Body Mass Index 44.2 Const General: cooperative, comfortable and no acute distress Nutritional Appearance: obese Orientation/consciousness: patient oriented x3 HEENT Face and sinus: Yes face symmetric Teeth and gingiva: other (mallampti score is 4) Eyes Pupils: Equal, round and reactive pupils present Neck Neck: Yes full ROM Resp Effort & Inspection: normal respiratory effort and able to speak in complete sentences Neuro General: patient oriented x3 and moves all extremities Cranial nerves: Yes Equal, round and reactive pupils present, Yes Normal accommodation reflex present, Yes Normal facial strength present, Yes Midline tongue present, Yes Ability to bilaterally rotate head present and Yes Ability to bilaterally elevate shoulders present Motor exam (neuro): 5/5 motor strength present throughout and Normal motor muscle tone present throughout Deep tendon reflexes (DTR's): Right triceps reflex intensity grade: 2+, Left triceps reflex intensity grade: 2+, Rt Biceps (C5, C6): 2+, Left biceps reflex intensity grade: 2+, Right brachioradialis reflex intensity grade: 2+, Left brachioradialis reflex intensity grade: 2+, Right patellar reflex intensity grade: 2+ and Left patellar reflex intensity grade: 2+ Psych Appearance: grossly normal Mental Status: mental status grossly normal Thought process: Normal thought process present Insight: Good insight present (Psych) Results Reviewed Results Reviewed: labs requested from PCP Assessment & Plan Assessment & Plan (1) Excessive daytime sleepiness: Code(s): G47.19 - Other hypersomnia Category: Medical (2) Morbid obesity: Code(s): E66.01 - Morbid (severe) obesity due to excess calories Category: Medical (3) RLS (restless legs syndrome): Code(s): G25.81 - Restless legs syndrome Category: Medical (4) Chronic fatigue: Code(s): R53.82 - Chronic fatigue, unspecified Category: Medical Plan HST r/o edgar Weight management BMI is 44, will f/u re: zepbound? Gerd, continue pantoprazole, and Famotidine per pcp. RLS will monitor. Labs requested from pcp. Orders: Orders RT home sleep study Today G47.19 - Other hypersomnia Comprehensive Met. Panel Today R53.82 - Chronic fatigue, unspecified Methylmalonic Acid Today G47.9 - Sleep disorder, unspecified, R53.82 - Chronic fatigue, unspecified, R53.83 - Other fatigue Complete Blood Count no Diff Today R53.82 - Chronic fatigue, unspecified Homocysteine Today G47.9 - Sleep disorder, unspecified, R53.82 - Chronic fatigue, unspecified, R53.83 - Other fatigue Ferritin Today R53.82 - Chronic fatigue, unspecified Vitamin D 25-OH Total Today R53.82 - Chronic fatigue, unspecified Vitamin B12 and Folate Today R53.82 - Chronic fatigue, unspecified Patient Instructions: Sleep Hygiene provided: set a scheduled bedtime and wake time to help regulate the circadian rhythm and balance the release of pituitary hormones. Sleep in a dark room, temperatures below 68 degrees, and no devices n bed. Limit caffeinated products 6 hours prior to bed, and limit fluids 2-4 hours prior to bed. Gentle night yoga, diffusing essential oils, and playing soft music can be relaxing. Coding Level of Care Code New Pt Level 4 (55777) Diagnoses Excessive daytime sleepiness G47.19 Morbid obesity E66.01 RLS (restless legs syndrome) G25.81 Chronic fatigue R53.82 Sleep Questionnaire Difficulty falling asleep: No Difficulty staying asleep?: Yes Number of arousals: 1-2 Snoring: No Witnessed apneas: No Gasping arousals: No Nocturia: No GERD: Yes Vivid dreams: No Acting out dreams: No Abnormal behavior in sleep: No Abnormal movements in sleep: No Morning headaches: No Excessive daytime sleepiness: Yes Daytime naps: Yes (1-2 hours) Restless legs: Yes Hallucinations: No Sleep paralysis: No Drop attacks: No Sleep Study: No CPAP: No
[2025-11-04 09:30] VITALS: BP 118/82; PULSE 73; O2SAT 98; BMI 44.2
--- OUTSIDE RECORDS SUMMARY | 2025-11-04 11:23 | XMS_ITS | Clinical Summary ---
Author Organization [facility], Address [address] [place] [address] [place] [address] Phone Care Team Providers Care Machine Operator Assistant Name Role Phone Goran Hernandez MD Primary Care Provider [phone] Medications buPROPion XL (WELLBUTRIN XL) 300 MG [...] Date Chronic kidney disease 04/19/2024 Nephrolithiasis 04/19/2024 Family History Medical History Relation Comments Cancer [...] Visit [facility] [place], [address] [place] [phone] Kevin Kline MD [address] [place] [address] [place] [address] Health Maintenance Due Date Last Done Comments Breast Cancer Screening 1970 Hepatitis B Vaccine (1 of 3 - 19+ 3-dose series) 02/07 Pneumococcal Vaccine: 50+ Years (1 of 2 - PCV) 989 Colorectal Cancer Screening: Annual FOBT 2019 Colorectal Cancer Screening: Colonoscopy 2019 Colorectal Cancer Screening: Sigmoidoscopy 2019 Influenza Vaccine (#1) 2025 Insurance [employer] Medicaid [place] Care Teams Machine Operator Assistant Relationship Specialty Start Date End Date Hernandez, Goran, MD [address] [facility] [address] [place] [address] PCP - General Internal Medicine 03/21/24
--- OUTSIDE RECORDS SUMMARY | 2025-11-04 11:23 | XMS_ITS | Clinical Summary ---
Author Organization [facility] Address [address] [place] [address] Care Team Providers Care Assistant Professor Of Education Name Role Phone Unavailable Primary Care Provider [...] of 2) 02/08/2020 COVID-19 Vaccine (1 - 2024- season) 2025 RSV Vaccine 50 years and old er and Patients (1 - 1-dose 75+ series) 2045
--- OUTSIDE RECORDS SUMMARY | 2025-11-04 11:23 | XMS_ITS | Encounter Summary ---
Author Organization [facility], Address [address] [place] [address] Phone Care Team Providers Care Substation Inspector Name Role Phone Goran Hernandez MD Primary Care Provider [phone] Encounter Details Date Type Department Care Team (Late st Contact Info) Description 12/14/2023 Documentation Only [facility] [address] [place] [address] Carlos [place] [address] [place] [phone] Social History Tobacco Use Types Packs/Day Years [...] Visit [facility] [address] [place] [address] Kevin Kline MD [address] [place] [address] documented as of this encounter Visit Diagnoses Not on filedocumented in this encounter Care Teams Substation Inspector Relationship Specialty Start Date End Date Goran Hernandez MD [address] [place] [phone] PCP - General Internal Medicine 03/21/24 documented as of this encounter
--- OUTSIDE RECORDS SUMMARY | 2025-11-04 11:23 | XMS_ITS | Encounter Summary ---
Author Organization [facility] [place], Address [address] [place] [address] Phone Care Team Providers Care Manager Recruiting Name Role Phone Goran Hernandez MD Primary Care Provider [phone] Encounter Details Date Type Department Care Team (Late st Contact Info) Description 12/14/2023 Documentation Only [facility] [address] [place] [address] Carlos Sandy MD [address] [place] [phone] Social History Tobacco Use Types Packs/Day Years [...] Visit [facility] [address] [place] [address] Kevin Kline MD [address] [facility] [place] [address] documented as of this encounter Visit Diagnoses Not on filedocumented in this encounter Care Teams Manager Recruiting Relationship Specialty Start Date End Date Goran Hernandez MD [address] [place] [phone] PCP - General Internal Medicine 03/21/24 documented as of this encounter
--- OUTSIDE RECORDS SUMMARY | 2025-11-04 11:23 | XMS_ITS | Encounter Summary ---
Author Organization [facility] Address [address] [place] [address] Care Team Providers Care Drinking Water Technician Name Role Phone Unavailable Primary Care Provider Unavailabl e Encounter Details Date Type Department Care Team (Late st Contact Info) Description 08/17/2023 Scanned Document [address] [phone] Tobi Urban MD [address] [place] [phone] Social History Tobacco Use Types Packs/Day Years [...]
== END 2025-11-04 10:38 | disposition home or self-care (01) ==
LOC: HO.HSMS 09:07
PROVIDERS: Visit Provider Physician Assistant Medical
DX: G47.19 Other hypersomnia (principal); E66.01 Morbid (severe) obesity due to excess calories; G25.81 Restless legs syndrome; R53.82 Chronic fatigue, unspecified
CPT/HCPCS: 99204

== ENCOUNTER → 2025-11-04 09:06 | Outpatient (BNVA) | payer MEDICARE, MEDICAID, SELFPAY | PROVIDERS: Visit Provider Physician Assistant Medical | DX: G47.19 Other hypersomnia (principal); G25.81 Restless legs syndrome; K21.9 Gastro-esophageal reflux disease without esophagitis; R53.82 Chronic fatigue, unspecified; E66.01 Morbid (severe) obesity due to excess calories; Z68.41 Body mass index [BMI] 40.0-44.9, adult; Z79.899 Other long term (current) drug therapy; Z71.89 Other specified counseling | CPT/HCPCS: 99202 ==

== ENCOUNTER 2025-11-05 07:49 | Outpatient (REF) | payer MEDICARE, MEDICAID, SELFPAY ==
--- OUTSIDE RECORDS SUMMARY | 2025-11-05 07:51 | XMS_ITS | Encounter Summary ---
Author Organization [facility] Address [address] [place] [address] Phone Care Team Providers Care Portfolio Mgr Name Role Phone Goran Hernandez MD Primary Care Provider Encounter Details Date Type Department Care Team (Late st Contact Info) Description 12/14/2023 Documentation Only [facility] [address] [place] [address] Carlos [place] [address] [place] [phone] Social History Tobacco Use Types Packs/Day Years [...] Visit [facility] [address] [place] [address] Kevin Kline MD [address] [address] [place] [address] documented as of this encounter Visit Diagnoses Not on filedocumented in this encounter Care Teams Portfolio Mgr Relationship Specialty Start Date End Date Goran Hernandez MD [address] [place] [phone] PCP - General Internal Medicine 03/21/24 documented as of this encounter
--- OUTSIDE RECORDS SUMMARY | 2025-11-05 07:51 | XMS_ITS | Clinical Summary ---
Author Organization [facility], Address [address] [place] [address] [place] [address] Phone Care Team Providers Care Commercial Announcer Name Role Phone Goran Hernandez MD Primary Care Provider Medications buPROPion XL (WELLBUTRIN XL) 300 MG [...] Visit [facility] [place], [address] [place] [phone] Keivn Kline MD [address] [place] [address] [place] [address] Health Maintenance Due Date Last Done Comments Breast Cancer Screening 1970 Hepatitis B Vaccine (1 of 3 - 19+ 3-dose series) 02/07 Pneumococcal Vaccine: 50+ Years (1 of 2 - PCV) 989 Colorectal Cancer Screening: Annual FOBT 2019 Colorectal Cancer Screening: Colonoscopy 2019 Colorectal Cancer Screening: Sigmoidoscopy 2019 Influenza Vaccine (#1) 2025 Insurance [employer] Medicaid [place] Care Teams Commercial Announcer Relationship Specialty Start Date End Date Hernandez, Goran, MD [address] [facility] [address] [place] [phone] PCP - General Internal Medicine 03/21/24
--- OUTSIDE RECORDS SUMMARY | 2025-11-05 07:51 | XMS_ITS | Encounter Summary ---
Author Organization [facility] Address [address] [place] [address] Care Team Providers Care Simulation Specialist Name Role Phone Unavailable Primary Care Provider Unavailabl e Encounter Details Date Type Department Care Team (Late st Contact Info) Description 08/17/2023 Scanned Document [address] [phone] Tobi Urban MD [address] [place] [phone] Social History Tobacco Use Types Packs/Day Years [...]
--- OUTSIDE RECORDS SUMMARY | 2025-11-05 07:51 | XMS_ITS | Clinical Summary ---
Author Organization [facility] Address [address] [place] [address] Care Team Providers Care Tubular Products Fabricator Name Role Phone Unavailable Primary Care Provider [...]
--- OUTSIDE RECORDS SUMMARY | 2025-11-05 07:51 | XMS_ITS | Encounter Summary ---
Author Organization [facility] Address [address] [place] [address] Phone Care Team Providers Care Precision Inspector Name Role Phone Goran Hernandez MD Primary Care Provider [phone] Encounter Details Date Type Department Care Team (Late st Contact Info) Description 12/14/2023 Documentation Only [facility] [address] [place] [address] Carlos [place] [address] [place] [phone] Social History Tobacco Use Types Packs/Day Years [...] Visit [facility] [address] [place] [address] Kevin Kline MD [address] [facility] [facility] [place] [address] documented as of this encounter Visit Diagnoses Not on filedocumented in this encounter Care Teams Precision Inspector Relationship Specialty Start Date End Date Goran Hernandez MD [address] [place] [phone] PCP - General Internal Medicine 03/21/24 documented as of this encounter
--- NOTE | 2025-11-05 09:08 | PCN2_ITS ---
Brief Operative Note Date of procedure: 11/05/25 Pre-op diagnosis: Right Lower pole, 1.7 cm, left Lower pole, 1.7 , Mid isthmus, 2.6 Post-op diagnosis: same Procedure: INDICATION: Right Lower pole, 1.7 x 1.0 x 1.3 cm, left Lower pole, 1.7 x 1.3 x 1.5cm and Mid isthmus, 2.6 x 2.2 x 2.2 cm; FNA performed to assess for malignancy DESCRIPTION OF PROCEDURE: The indications for FNA (to assess for malignancy) were reviewed with the patient in detail. Potential complications (e.g., bleeding, infection, damage to local structures, absence of clear diagnosis after FNA) were reviewed. Alternatives to FNA including conservative observation or surgery were described. The patient understood and agreed to proceed. This was documented by the signing of the written informed consent form. A time-out was performed to confirm the patient's identity and the site of planned FNA. The nodule of interest was identified using ultrasound (14 MHz linear array probe). The site of FNA was then draped in the usual fashion and carefully cleaned and prepared using alcohol swabs. The skin at the previously-identified site of needle insertion was iced and sprayed with numbing spray. Under ultrasound guidance, 4 passes for each nodule were performed using a 1.5- inch, 22-gauge needle, and sample was obtained via capillary action. The needle tip was clearly visualized to be within the nodule at the time of sampling for 4 of 4 passes The patient tolerated the procedure well. There were no immediate complications. A small adhesive bandage was applied, and the patient was advised to take acetaminophen (rather than NSAIDs) for any discomfort and to report any signs of inflammation/infection or marked swelling. IMPRESSION: Technically successful ultrasound-guided fine needle aspiration of Right Lower pole, 1.7 x 1.0 x 1.3 cm, left Lower pole, 1.7 x 1.3 x 1.5cm and Mid isthmus, 2.6 x 2.2 x 2.2 cm thyroid nodule. PLAN: The patient was advised that I will provide follow-up regarding the cytology result and any subsequent plans. Sandra Hodge MD Endocrinology Attending Surgeon: Sandra Hodge Condition: stable Disposition: same day
== END 2025-11-05 07:50 | disposition home or self-care (01) ==
LOC: HO.US 07:49
PROVIDERS: PCP Physician Assistant Medical; Visit Provider Student in an Organized Health Care Education/Training Program
DX: E04.1 Nontoxic single thyroid nodule (principal); R91.8 Other nonspecific abnormal finding of lung field
CPT/HCPCS: 10005; 10006; 76942; 88173; 88305

== ENCOUNTER → 2025-11-05 07:49 | Outpatient (BNV) | payer MEDICARE, MEDICAID, SELFPAY | PROVIDERS: PCP Physician Assistant Medical; Visit Provider Student in an Organized Health Care Education/Training Program | DX: E04.2 Nontoxic multinodular goiter (principal) | CPT/HCPCS: 10005; 10006 ==